=== PATIENT | male | born 1985 | race African-American/Black ===

== ENCOUNTER 2018-01-10 04:28 | Emergency (ER) | payer OTHER ==
[~2018-01-10] VITALS: Ht 185.4 cm; Wt 90.7 kg
[2018-01-10 04:30] VITALS: BP_SYST 150
--- NOTE | 2018-01-10 04:30 | NUR ---
Patient to ER hallway bed [facility] law enforcement.
--- NOTE | 2018-01-10 04:44 | NUR ---
Written and verbal consent obtained from patient for blood alcohol, name and verified by patient. Disinfected patient's skin with iodine that did not contain alcohol or other volatile organic compound. Collected the blood from the subject named by venipuncture, in the presence of [place] [id number]. Used a sterile, dry hypodermic needle and dry vacuum blood collection. The dry vacuum blood collection was supplied by the officer named above. Withdrew a specimen of blood from left antecubital of the subject named above. Inverted the blood tube several times to ensure that the preservative and anticoagulant were thoroughly mixed in the blood specimen. I initialed the blood tube label for identification. The labeled blood tube was handed directly to the Officer named above. The blood tube stopper remained in place while I had possession of the blood tube. The Officer placed tube into envelope and sealed it in my presence. Envelope initialed by myself and Officer named above. Patient tolerated well, bandage applied, and bleeding controlled.
--- NOTE | 2018-01-10 04:57 | NUR ---
Patient discharged to custody of law enforcement and verbalizes understanding. Patient in stable condition. ID arm band removed. Pain Scale 0/10. Opportunity for questions provided and answered.
== END 2018-01-10 04:57 ==
LOC: SED 04:28
DX: Z02.83 Encounter for blood-alcohol and blood-drug test (principal)